=== PATIENT | male | born 1970 | race Hispanic/Latino ===

== ENCOUNTER 2017-08-17 10:10 | Outpatient (CLI) | payer OTHER ==
--- NOTE | 2017-08-17 11:36 | RAD ---
KUB: History: Ureteral calculus. Comparison: None. FINDINGS: The bowel gas pattern is nonobstructed. A right ureteral stent is in place. It is difficult to see a definitive ureteral or renal calculus on this exam. IMPRESSION: Right renal stent in good position. POS: [facility]
== END 2017-08-17 10:11 | disposition home or self-care (01) ==
LOC: RAD 10:10
PROVIDERS: ATTEND Urology
DX: N20.1 Calculus of ureter (principal)
CPT/HCPCS: 74018